=== PATIENT | female | born 1950 | race Caucasian/White ===

== ENCOUNTER 2023-05-30 14:33 | Emergency (ER) | payer BC ==
[~2023-05-30] VITALS: Ht 157.5 cm; Wt 78.5 kg
[2023-05-30] MEDS ORDERED: HYDROCODONE/APAP 5/325MG TABLET ONE (15:35)
[2023-05-30] MEDS ORDERED: HYDROCODONE/APAP 5/325MG TABLET PO ONE (16:00)
[2023-05-30] MEDS ORDERED: MORPHINE SULFATE INJ 2 MG/ML DISP.SYRIN IV ONE (16:30)
[2023-05-30] MEDS ORDERED: MORPHINE SULFATE INJ 4 MG/ML DISP.SYRIN ONE (16:42)
[2023-05-30 16:45] LABS: BASOPHILS % (AUTO) 0.2 % (0.0-2.0); EOSINOPHILS % (AUTO) 0.4 % (0.0-6.0); HEMATOCRIT 39 % (33-45); LYMPHOCYTES # (AUTO) 0.7 K/uL (0.8-4.8); LYMPHOCYTES % (AUTO) 9.4 % (20.0-44.0); MEAN CORPUSCULAR HEMOGLOBIN 29 PG (26.0-33.0); MEAN CORPUSCULAR HGB CONC 33 g/dl (31.0-36.0); MEAN CORPUSCULAR VOLUME 87 fL (82-100); MONOCYTES # (AUTO) 0.7 K/uL (0.1-1.30); MONOCYTES % (AUTO) 9.6 % (2.0-12.0); NEUTROPHILS # (AUTO) 5.6 K/uL (1.8-8.9); NEUTROPHILS % (AUTO) 80.4 % (43.0-81.0); PLATELET COUNT (AUTO) 87 K/uL (150-450); RED BLOOD CELL COUNT(AUTO) 4.54 MIL/uL (4.0-5.2); RED CELL DISTRIBUTION WIDTH 14.9 % (11.5-15.0)
[2023-05-30 16:55] LABS: CALCIUM, SERUM 8.9 mg/dL (8.5-10.1); CHLORIDE 97 mmol/L (98-107); CREATININE 1.1 mg/dL (0.6-1.3); GLUCOSE 122 mg/dL (74-106); POTASSIUM 3.8 mmol/L (3.5-5.1); SODIUM SERUM 131 mmol/L (136-145); UREA NITROGEN, BLOOD 16 mg/dL (7-18)
[2023-05-30 17:04] LABS: CARBON DIOXIDE 26 mmol/L (21-32)
[2023-05-30 17:11] LABS: INR 1.1 (0.91-1.10); PARTIAL THROMBOPLASTIN TIME 26.1 SEC (24.3-34.3); PROTHROMBIN TIME 11.6 SECS (9.2-11.1)
[2023-05-30] MEDS ORDERED: MEMA10TA PO (18:12)
[2023-05-30] MEDS ORDERED: DONE5TAB34 PO (18:12)
[2023-05-30] MEDS ORDERED: FOLI0.4T6 PO (18:12)
[2023-05-30] MEDS ORDERED: ESCI5TAB PO (18:12)
[2023-05-30] MEDS ORDERED: POTA10TA10 PO (18:12)
[2023-05-30] MEDS ORDERED: LORAZEPAM INJ 2 MG/ML VIAL IV ONE (18:30)
[2023-05-30] MEDS ORDERED: LORAZEPAM INJ 2 MG/ML VIAL ONE (18:33)
[2023-05-30 20:27] LABS: ANISOCYTOSIS 1+; BAND % (MANUAL) 2 % (0.0-5.0); EOSINOPHILS % (MANUAL) 2 % (0-4); LYMPHOCYTES % (MANUAL) 10 % (16-48); MONOCYTES % (MANUAL) 9 % (0-11.0); NEUTROPHILS % (MANUAL) 75 (42-76); PLATELET ESTIMATE DECREASED; REACTIVE LYMPHOCYTES 2 % (0-0)
[2023-05-30 23:50] VITALS: BP 100/42; TEMP 98.2; O2SAT 95
== END 2023-05-30 23:51 | disposition short-term general hospital (02) ==
LOC: ER 14:36
DX: M25.552 Pain in left hip (principal); M25.562 Pain in left knee; R94.31 Abnormal electrocardiogram [ECG] [EKG]; F03.90 Unspecified dementia, unspecified severity, without behavioral disturbance, psychotic disturbance, mood disturbance, and anxiety; Z88.0 Allergy status to penicillin; Z91.010 Allergy to peanuts; W01.0XXA Fall on same level from slipping, tripping and stumbling without subsequent striking against object, initial encounter; Y93.89 Activity, other specified; Y92.89 Other specified places as the place of occurrence of the external cause; Y99.8 Other external cause status
CPT/HCPCS: 99285; 96374; 71045; 96375; 93005; 73503; 73564; 85025; 80048; 36415; 85730; 85007; J2060; J2270; 73502